=== PATIENT | male | born 1935 | race Caucasian/White ===

== ENCOUNTER → 2017-02-17 | Outpatient (CLI) | payer OTHER | END | disposition home or self-care (01) | LOC: PETCFH 07:59 | PROVIDERS: ATTEND Specialist | DX: R91.1 Solitary pulmonary nodule (principal); I51.7 Cardiomegaly; I71.4 Abdominal aortic aneurysm, without rupture; N40.0 Benign prostatic hyperplasia without lower urinary tract symptoms; Z95.1 Presence of aortocoronary bypass graft | CPT/HCPCS: 78815; A9552 ==